=== PATIENT | male | born 1970 | race Caucasian/White ===

== ENCOUNTER 2017-02-03 19:38 | Emergency (ER) | payer SELFPAY ==
[~2017-02-03] VITALS: Ht 177.8 cm; Wt 77.7 kg
[~2017-02-03 19:38] MED LIST: CIPR-9 PO; HYDR-3533 PO; METR-1 PO; NEXI20CA PO; PROM25TA5 PO
[2017-02-03 19:42] VITALS: BP 100/66; PULSE 83; RESP 16; TEMP 98.3; O2SAT 98
--- NOTE | 2017-02-03 20:05 | PD ---
HPI Chief Complaint: Abdominal Pain Time Seen by Provider: 20:01 Travel History International Travel<30 days: No Contact w/Intl Traveler<30days: No Traveled to known affect area: No History of Present Illness HPI 46-year-old male with history of diverticulitis, status post appendectomy, perforated gastric ulcer surgical treatment previously, presents to the ER today because he's had 3 days history of left testicular pain with radiation up to the left groin area. He states this started on its own. He denies any burning with urination, fevers, vomiting, back pains, or any other symptoms. Pain is currently rated a 10 out of 10. Modifying Factors: None Associated Signs & Symptoms: Left testicular pain Risk Factors: None PFSH Past Medical History Diminished Hearing: No GERD: Yes Musculoskeletal: Yes (RIGHT KNEE FX AGE 35) Past Surgical History Appendectomy: Yes (AGE 14) Other Surgery: Yes (TENDON,ARTERY REPAIR RIGHT FOREARM 1992) Social History Alcohol Use: No Tobacco Use: Yes (E-CIG) Substance Use: No Allergies-Medications (Allergen,Severity, Reaction): Coded Allergies: No Known Allergies (Verified , 02/03/17) Reported Meds & Prescriptions Reported Meds & Active Scripts Active Motrin Ib (Ibuprofen) 200 Mg Tab 600 Mg PO Q6H PRN Doxycycline Hyclate 100 Mg Cap 100 Mg PO BID Reported Nexium (Esomeprazole DR) 20 Mg Capdr 20 Mg PO DAILY Review of Systems Except as stated in HPI: all other systems reviewed are Neg Physical Exam Narrative GENERAL: Well-developed middle age male patient currently in mild distress but awake and oriented 3. SKIN: Focused skin assessment warm/dry. HEAD: Atraumatic. Normocephalic. EYES: Pupils equal and round. No scleral icterus. No injection or drainage. ENT: No nasal bleeding or discharge. Mucous membranes pink and moist. NECK: Trachea midline. No JVD. CARDIOVASCULAR: Regular rate and rhythm. No murmur appreciated. RESPIRATORY: No accessory muscle use. Clear to auscultation. Breath sounds equal bilaterally. GASTROINTESTINAL: Abdomen soft, mild lower pelvic tenderness on palpation especially left groin area, nondistended. Hepatic and splenic margins not palpable. GENITOURINARY: Circumcised. Testes descended bilaterally without evidence of rotation. There is tenderness to palpation and elevation of the left testicle. No lesions or erythema. No urethral discharge. MUSCULOSKELETAL: No obvious deformities. No clubbing. No cyanosis. No edema. NEUROLOGICAL: Awake and alert. No obvious cranial nerve deficits. Motor grossly within normal limits. Normal speech. PSYCHIATRIC: Appropriate mood and affect; insight and judgment normal. Data Data Last Documented VS Vital Signs Date Time Temp Pulse Resp B/P Pulse Ox O2 Delivery O2 Flow Rate FiO2 02/03/17 20:26 20 02/03/17 20:23 117/71 02/03/17 19:42 98.3 83 98 Orders Urinalysis - C+S If Indicated (02/03/17 20:01) Gc And Chlamydia Pcr (02/03/17 20:01) Us Testicles W Doppler (02/03/17 20:01) Acetamin-Hydrocod 325-5 Mg ([place] 5-325 (02/03/17 20:15) Labs Laboratory Tests Test 02/03/17 20:20 Urine Color YELLOW Urine Turbidity CLEAR Urine pH 5.5 Urine Specific [place] 1.014 Urine Protein NEG mg/dL Urine Glucose (UA) NEG mg/dL Urine Ketones NEG mg/dL Urine Occult Blood TRACE Urine Nitrite NEG Urine Bilirubin NEG Urine Leukocyte Esterase NEG Urine RBC 0-3 /hpf Urine WBC 0-2 /hpf Urine Squamous Epithelial 0-5 /hpf Cells Urine Mucus FEW /lpf Microscopic Urinalysis Comment CULT NOT INDICATED MDM Medical Decision Making Medical Screen Exam Complete: Yes Emergency Medical Condition: Yes Medical Record Reviewed: Yes Interpretation(s) Laboratory Tests Test 02/03/17 20:20 Urine Occult Blood TRACE (NEG) Urine Mucus FEW /lpf (OCC) Differential Diagnosis Left testicular painepididymitis versus orchitis versus UTI versus testicle torsion Narrative Course UA shows no signs of UTI. Ultrasound did not show any signs of testicular torsion. At this point, it appears that he may have an underlying orchitis or epididymitis. GC has been sent. My plan would be to treat him with antibiotics and have her follow-up with primary care physician as needed. Return for any worsening in pain or new symptoms. The plan has been discussed with him and he states understanding. In addition, there is a large left varicocele also identified although it is uncertain whether this could be the cause of pain. Diagnosis Primary Impression: Testicular pain, left Med/Other Pt SpecificInfo: Prescription(s) given Scripts Ibuprofen (Motrin Ib)200 Mg [id number] Mg PO Q6H PRN (PAIN SCALE 1 TO 10) #21 TAB Ref 0 Prov:Maci Davis MD 02/03/17 Doxycycline Hyclate 100 Mg [id number] Mg PO BID #20 CAP Ref 0 Prov:Maci Davis MD 02/03/17 Disposition: 01 DISCHARGE HOME Condition: Stable Maci Davis MD February 03, 2017 20:05
[2017-02-03] MEDS ORDERED: ACETAMINOPHEN/HYDROcodone 325 MG/5 MG TAB PO ONE (20:15)
[2017-02-03 20:23] VITALS: BP 117/71
[2017-02-03 20:24] LABS: BLOOD, URINE TRACE (NEG); GLUCOSE,URINE NEG (NEG); KETONE, URINE NEG (NEG); NITRITE,URINE NEG (NEG); PH, URINE 5.5 (5.0-8.5)
[2017-02-03 20:31] LABS: URINE COLOR YELLOW (YELLW/STRAW)
[2017-02-03 20:32] LABS: MUCUS URINE FEW /lpf (OCC); RBC, URINE 0-3 /hpf (0-3); SQUAMOUS EPITHELIAL CELL URINE 0-5 /hpf (0-5); WBC, URINE 0-2 /hpf (0-5)
[2017-02-03 20:33] LABS: COMMENT (UR) CULT NOT INDICATED; CULTURE IF INDICATED CULT NOT INDICATED
--- NOTE | 2017-02-03 20:51 | RADHPO ---
EXAM DATE/TIME: 02/03/2017 20:16 [facility] COMPARISON: No previous studies available for comparison. INDICATIONS : Testicle pain. MEDICAL HISTORY : Gastroesophageal reflux disease. Ulcers. Diverticulitis. SURGICAL HISTORY : Appendectomy. ENCOUNTER: Initial ACUITY: 3 days PAIN SCORE: 4/10 LOCATION: Bilateral testicles. MEASUREMENTS: RIGHT TESTICLE: 3.6 x 2.5 x 4.2cm LEFT TESTICLE: 3.3 x 2.3 x 4.3cm FINDINGS: RIGHT TESTICLE: Homogeneous echotexture without intra or extratesticular mass. Blood flow is symmetric and within no rmal limits. No hydrocele or varicocele. Subcentimeter epididymal cyst. LEFT TESTICLE: Homogeneous echotexture without intra or extratesticular mass. Blood flow is symmetric and within no rmal limits. Subcentimeter epididymal cyst. No hydrocele. Large varicocele. SCROTUM: Within normal limits. CONCLUSION: 1. Large left varicocele. 2. Otherwise within normal limits. No torsion. Subcentimeter bilateral spermatoceles are incidentally noted. Alexis Shell MD on February 03, 2017 at 20:48 Board Certified Radiologist. This report was verified electronically.
[2017-02-03] MEDS ORDERED: MOTR200T4 PO (21:00)
[2017-02-03] MEDS ORDERED: LIDOCAINE HCL 1% 50 ML VIAL XX ONE (21:00)
[2017-02-03] MEDS ORDERED: SODIUM CHLORIDE 0.9% FLUSH 10 ML FLUSH IVF PRN (21:00)
[2017-02-03] MEDS ORDERED: cefTRIAXone 250 MG VIAL IM ONE (21:00)
[2017-02-03] MEDS ORDERED: DOXY100C PO (21:00)
[2017-02-03 22:12] VITALS: BP 99/73
[2017-02-04 12:21] LABS: CHLAMYDIA PCR NOT DETECTED (NOT DETECT); NEISSERIA PCR NOT DETECTED (NOT DETECT)
== END 2017-02-03 22:20 | disposition home or self-care (01) ==
LOC: PHED 19:38
DX: N50.812 Left testicular pain (principal); I86.1 Scrotal varices; K21.9 Gastro-esophageal reflux disease without esophagitis
CPT/HCPCS: 76870; 81001; 87491; 87591; 93975; 96372; 99284; J0696

== ENCOUNTER 2017-07-10 09:12 | Inpatient (IN) | payer SELFPAY ==
[2017-07-10] VITALS (15 sets, daily range): BP systolic 82–118; BP diastolic 56–77; PULSE 58–156; RESP 16–38; TEMP 98.1–98.2; O2SAT 95–98
[~2017-07-10] VITALS: Ht 188 cm; Wt 83.9 kg
[~2017-07-10 09:12] MED LIST changes: -CIPR-9 PO; +DOXY100C PO; -HYDR-3533 PO; -METR-1 PO; +MOTR200T4 PO; -PROM25TA5 PO
[2017-07-10] MEDS ORDERED: DILTIAZEM HCL 25 MG/5 ML VIAL IV PUSH ONE (09:30)
[2017-07-10] MEDS ORDERED: PRIL20TA2 (09:35)
[2017-07-10 09:37] LABS: AUTOMATED NEUTROPHIL # 8.9 TH/MM3 (1.8-7.7); BASOPHIL # 0.1 TH/MM3 (0-0.2); BASOPHIL % 1.2 % (0.0-2.0); EOSINOPHIL # 0.2 TH/MM3 (0-0.4); EOSINOPHIL % 1.8 % (0.0-4.0); HEMATOCRIT 45.6 % (39.0-51.0); LYMPH % 18.8 % (9.0-44.0); LYMPHOCYTE # 2.3 TH/MM3 (1.0-4.8); MEAN CELL VOLUME 94.1 FL (80.0-100.0); MEAN CORPUSCULAR HEMOGLOBIN 31.9 PG (27.0-34.0); MEAN CORPUSCULAR HGB CONC 33.9 % (32.0-36.0); MONO % 6.6 % (0.0-8.0); NEUT % 71.6 % (16.0-70.0); PLATELET COUNT 300 TH/MM3 (150-450); RED BLOOD COUNT 4.84 MIL/MM3 (4.50-5.90); RED CELL DISTRIBUTION WIDTH 12.3 % (11.6-17.2); WHITE BLOOD COUNT 12.3 TH/MM3 (4.0-11.0)
--- NOTE | 2017-07-10 09:44 | RADRPT ---
EXAM DATE/TIME: 07/10/2017 09:30 [facility] COMPARISON: No previous studies available for comparison. INDICATIONS : Heart palpatations & syncopal episode. MEDICAL HISTORY : Gastroesophageal reflux disease. Diverticulitis. Perforated ulcer. Right knee fracture. Smoker. SURGICAL HISTORY : Appendectomy. Right forearm tendon repair. ENCOUNTER: Initial ACUITY: 1 day PAIN SCORE: 0/10 LOCATION: chest FINDINGS: A single view of the chest demonstrates the lungs to be symmetrically aerated without evidence of mas s, infiltrate or effusion. The cardiomediastinal contours are unremarkable. Osseous structures are intact. CONCLUSION: 1. No acute cardiopulmonary disease. Biju Singh MD on July 10, 2017 at 9:37 Board Certified Radiologist. This report was verified electronically.
[2017-07-10] MEDS: SODIUM CHLOR 0.9% 1000 ML INJ 1,000 ML IV SCH ×3 (09:45→22:12)
[2017-07-10 09:48] LABS: APTT (PATIENT) 25.7 SEC (24.3-30.1); PROTHROMBIN TIME - PATIENT 10.6 SEC (9.8-11.6)
[2017-07-10 10:03] LABS: BICARBONATE 21.7 MEQ/L (21.0-32.0)
[2017-07-10 10:04] LABS: ANION GAP 8 MEQ/L (5-15); AST (GOT) 37 U/L (15-37); CHLORIDE 111 MEQ/L (98-107); GLOMERULAR FILTRATION RATE 65 ML/MIN (>89); POTASSIUM 3.9 MEQ/L (3.5-5.1); SODIUM (NA) 141 MEQ/L (136-145)
[2017-07-10 10:06] LABS: ALT (GPT) 41 U/L (12-78); TOTAL BILIRUBIN ADULT 0.4 MG/DL (0.2-1.0)
[2017-07-10 10:07] LABS: ALKALINE PHOSPHATASE 81 U/L (45-117); CREATINE KINASE 232 U/L (39-308)
[2017-07-10 10:10] LABS: HEMO FLAGS DIFF FINAL
[2017-07-10 10:11] LABS: BLOOD UREA NITROGEN 15 MG/DL (7-18)
[2017-07-10] MEDS ORDERED: SODIUM CHLOR 0.9% 1000 ML INJ 1,000 ML IV ONE ×2 (10:15→10:30)
[2017-07-10] MEDS ORDERED: DILTIAZEM INJ 125 MG in SODIUM CHLORIDE 0.9% INJ 100 ML IV PRN (10:15)
--- NOTE | 2017-07-10 10:28 | PD ---
HPI Chief Complaint: Cardiac Complaint Time Seen by Provider: 09:22 Travel History International Travel<30 days: No Contact w/Intl Traveler<30days: No Traveled to known affect area: No History of Present Illness HPI 46-year-old male complains of near syncope and tachycardia and palpitation. Patient states that he started drinking tachycardia and palpitations since last night around 9 PM. Patient states that he went to work this morning and had the near-syncopal episode at work. Patient denies any headache. Patient states that he has left-sided chest pressure. Patient denies any chest pain radiation. Patient denies any nausea diaphoresis. Patient denies any coughing congestion fever chills. Patient denies history hypertension, diabetes, hyperlipidemia. Patient is a smoker. Patient denies any excessive caffeine intake. Patient denies any history of thyroid disease. Patient denies any history of palpitation or tachycardia in the past. Patient take Prilosec occasionally for heartburn. PFSH Past Medical History Diminished Hearing: No Gastrointestinal Disorders: Yes (DIVERTICULITIS AND PERFORATED ULCER) GERD: Yes Musculoskeletal: Yes (RIGHT KNEE FX AGE 35) Past Surgical History Appendectomy: Yes (AGE 14) Other Surgery: Yes (TENDON,ARTERY REPAIR RIGHT FOREARM 1992) Social History Alcohol Use: No Tobacco Use: Yes (09/17 PPD) Substance Use: No Allergies-Medications (Allergen,Severity, Reaction): Coded Allergies: No Known Allergies (Verified , 02/03/17) Reported Meds & Prescriptions Reported Meds & Active Scripts Active Reported Prilosec (Omeprazole Magnesium) 20 Mg Tab Review of Systems General / Constitutional: No: Fever Eyes: No: Visual changes HENT: No: Headaches Cardiovascular: Positive: Palpitations, Tachycardia, No: Chest Pain or Discomfort Respiratory: No: Shortness of Breath Gastrointestinal: No: Abdominal Pain Genitourinary: No: Dysuria Musculoskeletal: No: Pain Skin: No Rash Neurologic: No: Weakness Psychiatric: No: Depression Endocrine: No: Polydipsia Hematologic/Lymphatic: No: Easy Bruising Physical Exam Narrative GENERAL: Well-nourished, well-developed patient. SKIN: Focused skin assessment warm/dry. HEAD: Normocephalic. EYES: No scleral icterus. No injection or drainage. NECK: Supple, trachea midline. No JVD or lymphadenopathy. CARDIOVASCULAR: Tachycardia rate and rhythm without murmurs, gallops, or rubs. RESPIRATORY: Breath sounds equal bilaterally. No accessory muscle use. GASTROINTESTINAL: Abdomen soft, non-tender, nondistended. MUSCULOSKELETAL: No cyanosis, or edema. BACK: Nontender without obvious deformity. No CVA tenderness. Neurologic exam normal. Data Data Last Documented VS Vital Signs Date Time Temp Pulse Resp B/P (MAP) Pulse Ox O2 Delivery O2 Flow Rate FiO2 07/10/17 10:25 98.1 156 18 82/58 (66) 96 Room Air Orders Orders Electrocardiogram (07/10/17 09:22) Complete Blood Count With Diff (07/10/17 09:22) Comprehensive Metabolic Panel (07/10/17 09:22) Creatine Kinase (Cpk) (07/10/17 09:22) Troponin I (07/10/17 09:22) Prothrombin Time / Inr (Pt) (07/10/17 09:22) Act Partial Throm Time (Ptt) (07/10/17 09:22) Thyroid Stimulating Hormone (07/10/17 09:22) Chest, Single Ap (07/10/17 09:22) Iv Access Insert/Monitor (07/10/17 09:22) Ecg Monitoring (07/10/17 09:22) Oximetry (07/10/17 09:22) Diltiazem Inj (Cardizem Inj) (07/10/17 09:30) Sodium Chlor 0.9% 1000 Ml Inj (Ns 1000 M (07/10/17 09:45) Vital Signs (Adult) Q15MX4,Q4H (07/10/17 10:08) Body Mechanic / Telemetry SALLIE.Q8H (07/10/17 10:08) Cardiac Rhythm SALLIE.Q8H (07/10/17 10:08) Notify Dr: Other (07/10/17 10:08) Diltiazem Inj (Cardizem Inj) (07/10/17 10:15) Sodium Chlor 0.9% 1000 Ml Inj (Ns 1000 M (07/10/17 10:15) Sodium Chlor 0.9% 1000 Ml Inj (Ns 1000 M (07/10/17 10:30) Digoxin Inj (Lanoxin Inj) (07/10/17 10:30) Admit Order (Ed Use Only) (07/10/17 10:29) Labs Laboratory Tests Test 07/10/17 09:28 White Blood Count 12.3 TH/MM3 Red Blood Count 4.84 MIL/MM3 Hemoglobin 15.4 GM/DL Hematocrit 45.6 % Mean Corpuscular Volume 94.1 FL Mean Corpuscular Hemoglobin 31.9 PG Mean Corpuscular Hemoglobin Concent 33.9 % Red Cell Distribution Width 12.3 % Platelet Count 300 TH/MM3 Mean Platelet Volume 8.4 FL Neutrophils (%) (Auto) 71.6 % Lymphocytes (%) (Auto) 18.8 % Monocytes (%) (Auto) 6.6 % Eosinophils (%) (Auto) 1.8 % Basophils (%) (Auto) 1.2 % Neutrophils # (Auto) 8.9 TH/MM3 Lymphocytes # (Auto) 2.3 TH/MM3 Monocytes # (Auto) 0.8 TH/MM3 Eosinophils # (Auto) 0.2 TH/MM3 Basophils # (Auto) 0.1 TH/MM3 CBC Comment DIFF FINAL Differential Comment Prothrombin Time 10.6 SEC Prothromb Time International Ratio 1.0 RATIO Activated Partial Thromboplast Time 25.7 SEC Blood Urea Nitrogen 15 MG/DL Creatinine 1.20 MG/DL Random Glucose 130 MG/DL Total Protein 6.8 GM/DL Albumin 3.5 GM/DL Calcium Level 8.4 MG/DL Alkaline Phosphatase 81 U/L Aspartate Amino Transf (AST/SGOT) 37 U/L Alanine Aminotransferase (ALT/SGPT) 41 U/L Total Bilirubin 0.4 MG/DL Sodium Level 141 MEQ/L Potassium Level 3.9 MEQ/L Chloride Level 111 MEQ/L Carbon Dioxide Level 21.7 MEQ/L Anion Gap 8 MEQ/L Estimat Glomerular Filtration Rate 65 ML/MIN Total Creatine Kinase 232 U/L Troponin I 0.48 NG/ML Thyroid Stimulating Hormone 3rd Gen 1.590 uIU/ML MDM Medical Decision Making Medical Screen Exam Complete: Yes Emergency Medical Condition: Yes Interpretation(s) Last Impressions Chest X-Ray 07/10/17921 Signed Impressions: Service Date/Time: Monday, July 10, 2017 09:30 - CONCLUSION: 1. No acute cardiopulmonary disease. Biju Singh MD CBC WBC 12.3. 71 neutrophil. Troponin 0.48 Differential Diagnosis Differential diagnosis including atrial flutter with RVR, tachycardia. Narrative Course 38-year-old male with tachycardia, palpitation, near-syncope, left sided chest pain. The symptoms started around 9:00 last night. Normal saline solution 2 L IV bolus. Normal saline solution 1 25 cc an hour. Carotid massage unsuccessful to slow the heart rate. Cardizem 20 mg IV given. Patient had persistent tachycardia with rate 150 range. Cardizem drip started. Digoxin 0.25 mg IV given. Patient will be transferred to the main hospital admitted to [facility] with cardiology consults Dr. Siegel. I spoke with . Troponin is elevated. Unknown etiology could be related to cardiac arrhythmia. We will do serial troponin levels. Diagnosis Primary Impression: Atrial flutter with rapid ventricular response Additional Impressions: Chest pain Qualified Codes: R07.9 - Chest pain, unspecified Elevated troponin Admitting Information Admitting Physician Requests: Admit Saud Grover MD Jul 10, 2017 10:28
[2017-07-10] MEDS ORDERED: DIGOXIN 0.5 MG/2 ML VIAL IV PUSH ONE (10:30)
--- NOTE | 2017-07-10 11:20 | HHI.HP ---
[facility] Heladio Bob MD Admission Diagnosis atrial flutter with RVR. Chest pain. Diagnoses: Chief Complaint: lightheadedness, palpitations Travel History International Travel<30 Days: No Contact w/Intl Traveler <30 Da: No Traveled to Known Affected Are: No History of Present Illness 46-year-old white male being admitted for suspected symptomatic tachyarrhythmia (SVT vs Afib) and elevated troponin. Patient was in his usual state of health until last night when he began experiencing palpitations. He did not have any chest pain but his palpitations lingered throughout the entire and still persist until this moment. While he was at work she began experiencing lightheadedness with nausea associated with shortness of breath; and says he almost passed out. Denies any substantial chest pain today but reports having some vague intermittent chest pains about 2 days ago that self resolved. Denies taking any new medications for his acute symptoms and decided to proceed to the emergency room. Tachyarrhythmia did not respond to carotid massage and Cardizem bolus Review of Systems Except as stated in HPI: all other systems reviewed are Neg Past Family Social History Past Medical History GERD, peptic ulcer dx Past Surgical History perforated ulcer repair Allergies: Coded Allergies: No Known Allergies (Verified , 02/03/17) Family History CAD Social History Smoking pack per day since 13 years of age Physical Exam Vital Signs Vital Signs Date Time Temp Pulse Resp B/P (MAP) Pulse Ox O2 Delivery O2 Flow Rate FiO2 07/10/17 10:43 153 16 101/63 (76) 97 Room Air 07/10/17 10:39 156 98/57 07/10/17 10:25 98.1 156 18 82/58 (66) 96 Room Air 07/10/17 10:22 156 18 82/58 (66) 96 Room Air 07/10/17 09:32 98 Room Air 07/10/17 09:26 98.2 155 18 118/77 (91) 98 Physical Exam VS: Tachycardic, afebrile GENERAL: No acute distress, awake alert SKIN: Warm and dry. EYES: . No scleral icterus. No injection or drainage. ENT: No nasal bleeding or discharge. Mucous membranes pink and moist. CARDIOVASCULAR: Tachycardic with regular rhythm, no murmurs RESPIRATORY: No accessory muscle use. Clear to auscultation. Breath sounds equal bilaterally. GASTROINTESTINAL: Abdomen soft, non-tender, nondistended. Hepatic and splenic margins not palpable. Extremities: No clubbing, cyanosis, or edema. No obvious deformities. MUSCULOSKELETAL: Extremities without clubbing, cyanosis, or edema. No obvious deformities. grossly intact ROM with 5/5 strength in upper ext's proximally with a negative [place] test on the left, very mild tenderness noted in the biceps head groove. NEUROLOGICAL: Awake and alert. No obvious cranial nerve deficits. No facial droop nor slurred speech noted. PSYCHIATRIC: Appropriate mood and affect; insight and judgment normal. Laboratory Laboratory Tests Test 07/10/17 09:28 White Blood Count 12.3 Red Blood Count 4.84 Hemoglobin 15.4 Hematocrit 45.6 Mean Corpuscular Volume 94.1 Mean Corpuscular Hemoglobin 31.9 Mean Corpuscular Hemoglobin Concent 33.9 Red Cell Distribution Width 12.3 Platelet Count 300 Mean Platelet Volume 8.4 Neutrophils (%) (Auto) 71.6 Lymphocytes (%) (Auto) 18.8 Monocytes (%) (Auto) 6.6 Eosinophils (%) (Auto) 1.8 Basophils (%) (Auto) 1.2 Neutrophils # (Auto) 8.9 Lymphocytes # (Auto) 2.3 Monocytes # (Auto) 0.8 Eosinophils # (Auto) 0.2 Basophils # (Auto) 0.1 CBC Comment DIFF FINAL Differential Comment Prothrombin Time 10.6 Prothromb Time International Ratio 1.0 Activated Partial Thromboplast Time 25.7 Blood Urea Nitrogen 15 Creatinine 1.20 Random Glucose 130 Total Protein 6.8 Albumin 3.5 Calcium Level 8.4 Alkaline Phosphatase 81 Aspartate Amino Transf (AST/SGOT) 37 Alanine Aminotransferase (ALT/SGPT) 41 Total Bilirubin 0.4 Sodium Level 141 Potassium Level 3.9 Chloride Level 111 Carbon Dioxide Level 21.7 Anion Gap 8 Estimat Glomerular Filtration Rate 65 Total Creatine Kinase 232 Troponin I 0.48 Thyroid Stimulating Hormone 3rd Gen 1.590 Result Diagram: 07/10/1792707/10/17927 Imaging Last Impressions Chest X-Ray 07/10/17 0922 Signed Impressions: Service Date/Time: Monday, July 10, 2017 09:30 - CONCLUSION: 1. No acute cardiopulmonary disease. MD Rossana Marie VTE Risk Assessment Rossana VTE Risk Assessment: No/Low Risk (score <= 1) Rossana Risk Assessment Model Point Value = 1 Point Value = 2 Point Value = 3 Point Value = 5 Age 41-60 Minor surgery BMI > 25 kg/m2 Swollen legs Varicose veins or History of unexplained or recurrent spontaneous Oral contraceptives or hormone replacement Sepsis (< 1 month) Serious lung disease, including pneumonia (< 1 month) Abnormal pulmonary function Acute myocardial infarction Congestive heart failure (< 1 month) History of inflammatory bowel disease Medical patient at bed rest Age 61-74 Arthroscopic surgery Major open surgery (> 45 min) Laparoscopic surgery (> 45 min) Malignancy Confined to bed (> 72 hours) Immobilizing plaster cast Central venous access Age >= 75 History of VTE Family history of VTE Factor V Leiden Prothrombin [id number] Lupus anticoagulant Anticardiolipin antibodies Elevated serum homocysteine Heparin-induced thrombocytopenia Other congenital or acquired thrombophilia Stroke (< 1 month) Elective arthroplasty Hip, pelvis, or leg fracture Acute spinal cord injury (< 1 month) Prophylaxis Regimen Total Risk Factor Score Risk Level Prophylaxis Regimen 0-1 Low Early ambulation 2 Moderate Order ONE of the following: *Sequential Compression Device (SCD) *Heparin 5000 units SQ BID 3-4 Higher Order ONE of the following medications: *Heparin 5000 units SQ TID *Enoxaparin/Lovenox 40 mg SQ daily (WT < 150 kg, CrCl > 30 mL/min) *Enoxaparin/Lovenox 30 mg SQ daily (WT < 150 kg, CrCl > 10-29 mL/min) *Enoxaparin/Lovenox 30 mg SQ BID (WT < 150 kg, CrCl > 30 mL/min) AND/OR *Sequential Compression Device (SCD) 5 or more Highest Order ONE of the following medications: *Heparin 5000 units SQ TID (Preferred with Epidurals) *Enoxaparin/Lovenox 40 mg SQ daily (WT < 150 kg, CrCl > 30 mL/min) *Enoxaparin/Lovenox 30 mg SQ daily (WT < 150 kg, CrCl > 10-29 mL/min) *Enoxaparin/Lovenox 30 mg SQ BID (WT < 150 kg, CrCl > 30 mL/min) AND *Sequential Compression Device (SCD) Assessment and Plan Assessment and Plan 46-year-old white male being admitted for tachyarrhythmia, suspected SVT versus A. fib Symptomatic tachyarrhythmia - No EKG on chart, spoke to electromechanical technologist will obtain one stat prior to patient being transferred to Main Hospital - Discussed case with ER attending who discussed case with cardiology, agree with plan for Cardizem drip and a one-time digoxin push, anticipate transesophageal echocardiogram with possible conversion if her dysrhythmia still present - telemetry; I independent reviewed the chest x-ray which shows no acute findings Elevated troponin - Secondary to tachyarrhythmia versus possible ischemic demand, will let cardiology dictating us whether or not ischemic workup is warranted once tachyarrhythmia is stabilized - Trend troponins, stat EKG is pending as above Currently nothing by mouth for possible procedure this later this afternoon as above Physician Certification 2 Midnight Certification Type: Admission for Inpatient Services Order for Inpatient Services The services are ordered in accordance with Medicare regulations or non- Medicare payer requirements, as applicable. In the case of services not specified as inpatient-only, they are appropriately provided as inpatient services in accordance with the 2-midnight benchmark. Estimated LOS (days): 2 2 days is the estimated time the patient will need to remain in the hospital, assuming treatment plan goals are met and no additional complications. Post-Hospital Plan: Home Herrera Blue MD Jul 10, 2017 11:20
[2017-07-10] MEDS ORDERED: SODIUM CHLORIDE 0.9% FLUSH 10 ML FLUSH IV FLUSH PRN (11:30)
[2017-07-10] MEDS ORDERED: LIDOCAINE HCL 1% PF 5 ML AMPULE OTHER ONE (12:00)
[2017-07-10] MEDS ORDERED: PROPOFOL 200 MG/20 ML AMP IV ONE (12:00)
[2017-07-10] MEDS ORDERED: CHLORHEXIDINE GLUCONATE 2 % 1 PACK (2 CLOTHS)(extra cloths) TOPICAL PRN (14:00)
[2017-07-10] MEDS ORDERED: ACETAMINOPHEN 500 MG CPLT PO PRN (15:45)
[2017-07-10] MEDS: NICOTINE 7 MG/24 HR PATCH T-DERMAL SCH (18:33)
[2017-07-10] MEDS ORDERED: WARFARIN SOD 4 MG TAB PO ONE (20:00)
[2017-07-10] MEDS: METOPROLOL TARTRATE 25 MG TAB PO SCH (21:00)
--- NOTE | 2017-07-10 22:00 | MB ---
cc: ALLEN SIEGEL DATE OF CONSULTATION 07/10/2017 HISTORY OF THE PRESENT ILLNESS Mr. Bond is a 46-year-old white male with a three day history of palpitations. 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 He has had vague chest discomfort which was self-limiting. He was diagnosed with atrial fibrillation with rapid ventricular response. PAST MEDICAL HISTORY Positive for: 1. Gastroesophageal reflux disease. 2. Peptic ulcer disease. 3. Perforated ulcer repair. No history of hypertension, diabetes mellitus, coronary artery disease or cerebrovascular accident. MEDICATIONS None ALLERGIES None. SOCIAL HISTORY The patient smokes a pack a day. He drinks alcohol rarely. FAMILY HISTORY Positive for coronary artery disease. REVIEW OF SYSTEMS Otherwise negative. PHYSICAL EXAMINATION VITAL SIGNS: Blood pressure 95/60, pulse 150 and irregular. HEENT: Negative. 2+ carotid upstrokes. No bruits. LUNGS: Clear. HEART: Irregular with no murmurs, gallops or rubs. ABDOMEN: Soft. No bruits. EXTREMITIES: Without edema. 2+ distal pulses. NEUROLOGIC: Examination is grossly nonfocal. EKG was reviewed and showed atrial flutter with rapid ventricular response. No acute changes. LABORATORY DATA Hemoglobin 15.4. Potassium 3.9, creatinine 1.2, AST 37, ALT 41. CK 232. Troponin 0.48. TSH 1.59. DIAGNOSES 1. Atrial flutter with rapid ventricular response. 2. Smoking. DISPOSITION Mr. Bond will undergo transesophageal echocardiogram and DC cardioversion. He will be restarted on low dose beta-syd after the cardioversion. We will also start him on warfarin which will be continued for 3 months. If he stays in sinus rhythm the warfarin can be discontinued and he can be switched to aspirin since his [id number] score is zero. He will follow up with Dr. Bob, his primary physician, in his office after discharge. Allen Siegel MD OQ/KK /5:46 PM /9:45 PM
[2017-07-10] MEDS: SODIUM CHLORIDE 0.9% FLUSH 10 ML FLUSH IV FLUSH SCH (22:11)
[2017-07-11] VITALS: BP 91/64; PULSE 70; RESP 16; TEMP 98.3; O2SAT 95
[2017-07-11 02:00] VITALS: PULSE 75
[2017-07-11 04:00] VITALS: BP 107/67; PULSE 64; PULSE 71; RESP 16; TEMP 98.4
[2017-07-11] MEDS ORDERED: CHLORHEXIDINE GLUCONATE 2 % 1 PACK (2 CLOTHS)(taper/protocol) TOPICAL SCH (04:00)
[2017-07-11 06:00] VITALS: PULSE 74
[2017-07-11] MEDS: SODIUM CHLOR 0.9% 1000 ML INJ 1,000 ML IV SCH (06:00)
[2017-07-11 08:00] VITALS: PULSE 75
--- NOTE | 2017-07-11 08:12 | ECHRPT ---
Indication: CONCLUSIONS Normal left ventricular size. Wall thickness is normal. The left ventricular systolic function is normal with an estimated ejection fraction of 55%. The left atrial size is moderately dilated. The right atrial size is moderately dilated. Moderate aortic dilatation at the level of the sinuses of Valsalva. Mild mitral valve regurgitation. Mild aortic valve regurgitation. BP: / HR: Rhythm: Sinus MEASUREMENTS (Male / Female) Normal Values Technical Quality:Fair 2D ECHO LV Diastolic Diameter PLAX 4.2 cm 4.2 - 5.9 / 3.9 - 5.3 cm LV Systolic Diameter PLAX 3.1 cm IVS Diastolic Thickness 0.8 cm 0.6 - 1.0 / 0.6 - 0.9 cm LVPW Diastolic Thickness 0.8 cm 0.6 - 1.0 / 0.6 - 0.9 cm LV Relative Wall Thickness 0.4 LVOT Diameter 2.1 cm Aortic Root Diameter 5.1 cm LA Systolic Diameter LX 3.0 cm 3.0 - 4.0 / 2.7 - 3.8 cm M-MODE AV Cusp Separation MM 1.8 cm DOPPLER AV Peak Velocity 102.0 cm/s AV Peak Gradient 4.2 mmHg AV Mean Gradient 2.0 mmHg AV Velocity Time Integral 21.1 cm AI Peak Velocity 345.0 cm/s AI Peak Gradient 47.6 mmHg AI Pressure Half Time 724.0 ms LVOT Peak Velocity 67.7 cm/s LVOT Peak Gradient 1.8 mmHg LVOT Velocity Time Integral 13.8 cm AV Area Cont Eq vti 2.3 cm AV Area Cont Eq pk 2.3 cm Mitral E Point Velocity 72.1 cm/s Mitral A Point Velocity 34.1 cm/s Mitral E to A Ratio 2.1 LV E' Lateral Velocity 10.7 cm/s Mitral E to LV E' Lateral Ratio 6.7 LV E' Septal Velocity 8.3 cm/s Mitral E to LV E' Septal Ratio 8.7 PV Peak Velocity 48.9 cm/s PV Peak Gradient 1.0 mmHg FINDINGS LEFT VENTRICLE Normal left ventricular size. Wall thickness is normal. The left ventricular systolic function is normal with an estimated ejection fraction of 55%. LEFT ATRIUM The left atrial size is moderately dilated. RIGHT ATRIUM The right atrial size is moderately dilated. AORTA Moderate aortic dilatation at the level of the sinuses of Valsalva. MITRAL VALVE Mild mitral valve regurgitation. AORTIC VALVE Mild aortic valve regurgitation. Allen Siegel MD, FACC (Electronically Signed) Final Date:11 July 2017 08:11
--- NOTE | 2017-07-11 08:46 | HHI.PR ---
Subjective Remarks Follow up tachyarrhythmia. Patient denies chest pain, dyspnea, palpitations. He wants to go home. States that he has an appointment with cardiology tomorrow in [place]. Objective Vitals Vital Signs Date Time Temp Pulse Resp B/P (MAP) Pulse Ox O2 Delivery O2 Flow Rate FiO2 07/11/17 06:00 74 07/11/17 04:00 98.4 64 16 107/67 (80) 07/11/17 04:00 71 07/11/17 02:00 75 07/11/17 00:00 70 07/11/17 00:00 98.3 70 16 91/64 (73) 95 07/10/17 22:00 70 07/10/17 20:00 98.2 75 38 95 07/10/17 20:00 75 07/10/17 18:00 78 07/10/17 16:00 65 07/10/17 14:38 58 07/10/17 12:30 152 07/10/17 11:30 150 16 93/56 (68) 97 Room Air 07/10/17 11:30 07/10/17 11:15 150 16 95/73 (80) 97 Room Air 07/10/17 10:43 153 16 101/63 (76) 97 Room Air 07/10/17 10:39 156 98/57 07/10/17 10:25 98.1 156 18 82/58 (66) 96 Room Air 07/10/17 10:22 156 18 82/58 (66) 96 Room Air 07/10/17 10:00 153 16 85/66 (72) 97 Room Air 07/10/17 09:40 156 16 96/65 (75) 97 Room Air 07/10/17 09:32 98 Room Air 07/10/17 09:26 98.2 155 18 118/77 (91) 98 I/O 07/10/17 07/10/17 07/10/17 07/11/17 07/11/17 07/11/17 07:00 15:00 23:00 07:00 15:00 23:00 Intake Total 2045.00 ml 1013 ml Output Total 700 ml Balance 2045.00 ml 313 ml Intake Oral 60 ml IV Total 2045.00 ml 953 ml Output Urine Total 700 ml Result Diagram: 07/10/1792707/10/17927 Imaging Last Impressions Chest X-Ray 07/10/1722 Signed Impressions: Service Date/Time: Monday, July 10, 2017 09:30 - CONCLUSION: 1. No acute cardiopulmonary disease. Biju Singh MD Objective Remarks General: No acute distress. Heart: Regular rate and rhythm. No murmur. Lungs: Clear to auscultation bilaterally. No wheezes, rales, or rhonchi. Breathing is nonlabored. Abdomen: Soft, nontender, nondistended. Extremities: No lower extremity edema. No calf tenderness. Psych: Alert and oriented. Procedures 07/10/17 Transesophageal echocardiogram, DC cardioversion Urinary Catheter: No Vascular Central Line Catheter: No A/P Problem List: (1) Atrial flutter with rapid ventricular response ICD Code: I48.92 - Unspecified atrial flutter Status: Acute (2) Elevated troponin ICD Code: R74.8 - Abnormal levels of other serum enzymes Status: Acute Assessment and Plan 1. Atrial flutter with RVR: S/P PAULINA and cardioversion. Appreciate cardiology recommendations. Patient denies chest pain, dyspnea, palpitations today. Continue metoprolol. 2. Elevated troponin: Possibly secondary to tachyarrhythmia, cardioversion. Appreciate cardiology recommendations. 3. DVT prophylaxis: Coumadin. Discharge Planning When cleared by cardiology. Stu Bartlett MD Jul 11, 2017 08:46
--- NOTE | 2017-07-11 08:55 | HHI.DCPOC ---
Discharge Care Plan Diagnosis: (1) Atrial flutter with rapid ventricular response (2) Elevated troponin Goals to Promote Your Health * To prevent worsening of your condition and complications * To maintain your health at the optimal level Directions to Meet Your Goals Take your medications as prescribed Follow your dietary instruction Follow activity as directed Keep your appointments as scheduled Take your immunizations and boosters as scheduled If your symptoms worsen call your PCP, if no PCP go to Urgent Care Center or Emergency Room Smoking is Dangerous to Your Health. Avoid second hand smoke Call the 24-hour hour crisis hotline for domestic abuse at Stu Bartlett MD Jul 11, 2017 08:55
[2017-07-11] MEDS ORDERED: METO25TA3 PO (08:56)
[2017-07-11] MEDS ORDERED: COUM4TAB PO (08:56)
[2017-07-11] MEDS ORDERED: REMOVE OLD PATCH T-DERMAL SCH (09:00)
[2017-07-11] MEDS: SODIUM CHLORIDE 0.9% FLUSH 10 ML FLUSH IV FLUSH SCH (09:00)
[2017-07-11] MEDS: NICOTINE 7 MG/24 HR PATCH T-DERMAL SCH (09:44)
[2017-07-11] MEDS: METOPROLOL TARTRATE 25 MG TAB PO SCH (09:44)
--- NOTE | 2017-07-11 10:29 | PD.CARD.PN ---
Subjective Subjective Remarks No CP or SOB, feels very well, stays in SR Objective Medications Laboratory Tests Test 07/10/17 12:22 07/10/17 16:05 07/10/17 22:39 Nasal Screen MRSA (PCR) MRSA NOT DETECTED Troponin I 1.17 2.05 Vital Signs / I&O Vital Signs Date Time Temp Pulse Resp B/P (MAP) Pulse Ox O2 Delivery O2 Flow Rate FiO2 07/11/17 08:00 75 07/11/17 06:00 74 07/11/17 04:00 98.4 64 16 107/67 (80) 07/11/17 04:00 71 07/11/17 02:00 75 07/11/17 00:00 70 07/11/17 00:00 98.3 70 16 91/64 (73) 95 07/10/17 22:00 70 07/10/17 20:00 98.2 75 38 95 07/10/17 20:00 75 07/10/17 18:00 78 07/10/17 16:00 65 07/10/17 14:38 58 07/10/17 12:30 152 07/10/17 11:30 150 16 93/56 (68) 97 Room Air 07/10/17 11:30 07/10/17 11:15 150 16 95/73 (80) 97 Room Air 07/10/17 10:43 153 16 101/63 (76) 97 Room Air 07/10/17 10:39 156 98/57 I/O 07/10/17 07/10/17 07/10/17 07/11/17 07/11/17 07/11/17 07:00 15:00 23:00 07:00 15:00 23:00 Intake Total 2045.00 ml 1013 ml Output Total 700 ml Balance 2045.00 ml 313 ml Intake Oral 60 ml IV Total 2045.00 ml 953 ml Output Urine Total 700 ml Physical Exam GENERAL: In NAD SKIN: Warm and dry. HEAD: Normocephalic. EYES: No scleral icterus. No injection or drainage. NECK: Supple, trachea midline. No JVD or lymphadenopathy. CARDIOVASCULAR: Regular rate and rhythm without murmurs, gallops, or rubs. RESPIRATORY: Breath sounds equal bilaterally. No accessory muscle use. GASTROINTESTINAL: Abdomen soft, non-tender, nondistended. MUSCULOSKELETAL: No cyanosis, or edema. Laboratory Laboratory Tests Test 07/10/17 12:22 07/10/17 16:05 07/10/17 22:39 Nasal Screen MRSA (PCR) MRSA NOT DETECTED Troponin I 1.17 NG/ML 2.05 NG/ML Assessment and Plan Problem List: (1) Atrial flutter with rapid ventricular response ICD Codes: I48.92 - Unspecified atrial flutter Assessment and Plan Stays in SR after cardioversion. Echo with preserved LV function. Continue metoprolol. Recommend anticoagulation with warfarin; f/u INR with Dr. Bob weekly until stable. Switch to aspirin in 3 months (CHADS-VASc score 0). DC home. F/u w Dr. Bob. Allen Siegel MD Jul 11, 2017 10:29
--- NOTE | 2017-07-11 10:40 | MR ---
cc: KAMRAN BILL DATE 07/11/2017 PROCEDURE PERFORMED Cardioversion INDICATION Atrial flutter with rapid ventricular response. PROCEDURE PERFORMED DC cardioversion SEDATION Provided by anesthesia. PROCEDURE After the patient was sedated by anesthesia, 50 joules biphasic shocks was delivered and converted the patient to sinus rhythm. The patient remained stable in sinus rhythm. DIAGNOSIS Successful cardioversion of atrial flutter. Mr. Bond will be monitored on telemetry. We will initiate anticoagulation with Warfarin and therapy with low-dose Metoprolol. His PT and INR will be followed by but his primary physician Dr. Bob. He will follow up with his PCP after discharge. MD ASHLYN Browning/ED /6:00 PM /10:35 AM
--- NOTE | 2017-07-11 14:37 | EKG ---
Date Performed: 07/10/2017 Time Performed: 09:19:47 PTAGE: 46 years EKG: ATRIAL FLUTTER/TACHYCARDIA WITH RAPID VENTRICULAR RESPONSE POSSIBLE RIGHT VENTRICULAR CONDU CTION DELAY NONSPECIFIC ST & T-WAVE ABNORMALITY ABNORMAL ECG Compared to PREVIOUS TRACING the patient is no longer in Sinus rhythm and the rhythm is most consistent with 2:1 atrial flutter. The nonspecific ST segment changes are ne w. Clinical correlation will be important. PREVIOUS TRACIN04/23/2008 09.58 DOCTOR: April Miller Interpretating Date/Time 07/11/2017 14:37:13
--- NOTE | 2017-07-11 14:53 | EKG ---
Date Performed: 07/10/2017 Time Performed: 11:29:42 PTAGE: 46 years EKG: ATRIAL FLUTTER/TACHYCARDIA WITH RAPID VENTRICULAR RESPONSE POSSIBLE RIGHT VENTRICULAR CONDU CTION DELAY NONSPECIFIC ST & T-WAVE ABNORMALITY ABNORMAL ECG PREVIOUS TRACING : 07/10/2017 09.19 Compared to prior tracing no significant change DOCTOR: April Miller Interpretating Date/Time 07/11/2017 14:50:46
[2017-07-11] MEDS ORDERED: WARFARIN SOD 4 MG TAB PO SCH (16:00)
--- NOTE | 2017-07-12 11:17 | CF ---
cc: KAMRAN BILL PROCEDURE PERFORMED Transesophageal echocardiogram INDICATIONS Atrial flutter, for sedation evaluation for left atrial thrombus prior to cardioversion. PROCEDURE After the patient was sedated by anesthesia, a transesophageal probe was placed without difficulty. Tomographic images were obtained. Left atrial appendage was visualized and there was no evidence of left atrial thrombus. Left ventricular function was preserved. His estimated ejection fraction is 55% with no significant wall motion abnormalities. The aortic root was dilated. There was evidence of moderate aortic insufficiency. There was no evidence of aortic stenosis. The mitral valve was structurally normal. There was no evidence of mitral stenosis. There was evidence of trace mitral regurgitation. There was evidence of a tricuspid regurgitation and also had evidence of trace pulmonary insufficiency. Bubble study was performed and there was no evidence of right to left shunt. Descending thoracic aorta and ascending thoracic aorta did not appear to be significantly dilated. DIAGNOSIS 1. No evidence of left atrial thrombus. 2. Preserved left ventricular systolic function. 3. Aortic root dilatation. 4. Moderate aortic insufficiency. 5. Trace mitral regurgitation. 6. Trace tricuspid regurgitation. MD ASHLYN Browning/ED /5:51 PM /11:03 AM
== END 2017-07-11 09:57 | disposition home or self-care (01) | DRG 310 ==
LOC: PHED 09:12 → PHEDA 10:30 → HIME 12:02
PROVIDERS: ADMIT Family Medicine; ATTEND Family Medicine
PROC: 5A2204Z Restoration of Cardiac Rhythm, Single (ICD-10-PCS; principal; 2017-07-10)
PROC: B24BZZ4 Ultrasonography of Heart with Aorta, Transesophageal (ICD-10-PCS; 2017-07-10)
DX: I48.92 Unspecified atrial flutter (principal); F17.210 Nicotine dependence, cigarettes, uncomplicated; K21.9 Gastro-esophageal reflux disease without esophagitis; Z87.11 Personal history of peptic ulcer disease; R74.8 Abnormal levels of other serum enzymes
CPT/HCPCS: 71010; 80053; 82550; 84443; 84484; 85025; 85610; 85730; 87641; 92960; 93005; 93306; 93312; 93320; 93325; 96361; 96374; J1160; J7030

== ENCOUNTER 2017-09-30 14:40 | Emergency (ER) | payer BC ==
[~2017-09-30] VITALS: Ht 177.8 cm; Wt 84.0 kg
[~2017-09-30 14:40] MED LIST changes: +COUM4TAB PO; -DOXY100C PO; +METO25TA3 PO; -MOTR200T4 PO; -NEXI20CA PO; +PRIL20TA2
[2017-09-30 14:46] VITALS: BP 126/68; PULSE 76; RESP 16; TEMP 98.3; O2SAT 97
[2017-09-30] MEDS ORDERED: CLIN300C5 PO (15:08)
--- NOTE | 2017-09-30 15:22 | PD ---
HPI Chief Complaint: ENT Complaint Time Seen by Provider: 15:14 Travel History International Travel<30 days: No Contact w/Intl Traveler<30days: No Traveled to known affect area: No History of Present Illness HPI 46-year-old male presents to the ED for evaluation of 3 day history of white spots in the back of his throat and now on his tongue. He endorses slight itch to that area but denies sore throat, headaches, sinus congestion, rhinorrhea, ear pain, cough, fevers, nausea or vomiting. He states that he just finished a course of clindamycin for diverticulitis. PFSH Past Medical History Hx Anticoagulant Therapy: Yes (COUMADIN) Arthritis: Yes Asthma: No Autoimmune Disease: No Cancer: No Cardiovascular Problems: No COPD: No Diabetes: No Diminished Hearing: No Endocrine: No Gastrointestinal Disorders: Yes (DIVERTICULITIS AND PERFORATED ULCER) GERD: Yes Genitourinary: No Hiatal Hernia: Yes Immune Disorder: No Musculoskeletal: Yes (RIGHT KNEE FX AGE 35) Neurologic: Yes Psychiatric: No Reproductive: No Respiratory: No Migraines: Yes Sleep Apnea: No Thyroid Disease: No Ulcer: Yes Past Surgical History Abdominal Surgery: Yes Appendectomy: Yes (AGE 14) Cardiac Surgery: No Ear Surgery: No Endocrine Surgery: No Eye Surgery: No Genitourinary Surgery: No Gynecologic Surgery: No Oral Surgery: No Thoracic Surgery: No Other Surgery: Yes (TENDON,ARTERY REPAIR RIGHT FOREARM 1992) Social History Alcohol Use: No Tobacco Use: Yes (/2 PPD) Substance Use: No Allergies-Medications (Allergen,Severity, Reaction): Coded Allergies: No Known Allergies (Verified , 02/03/17) Reported Meds & Prescriptions Reported Meds & Active Scripts Active Magic Mouthwash Adult Liq (Multi-Ingredient Mouthwash/Gargle) 120 Ml Susp 5 Ml SWISH-SWAL ACHS 14 Days Each 5mL contains: Nystatin 200,000units, Diphenhydramine 4.25mg, Viscous Lidocaine 10mg, [place]ura syrup 0.8 mL Clotrimazole Jose (Clotrimazole) 10 Mg Troc 10 Mg PO 5 TIMES A DAY 14 Days Coumadin (Warfarin) 4 Mg Tab 4 Mg PO DAILY@16 Metoprolol Tartrate 25 Mg Tab 25 Mg PO Q12HR Reported Clindamycin (Clindamycin HCl) 300 Mg Cap 300 Mg PO Q8HR Review of Systems Except as stated in HPI: all other systems reviewed are Neg Physical Exam Narrative GENERAL: Well-nourished, well-developed white male in no acute distress. SKIN: Warm and dry. HEAD: Normocephalic. Atraumatic. EYES: No scleral icterus. No injection or drainage. PERRLA. EOMI. ENT: Pearly allan tympanic membranes bilaterally. Nasal mucosa is moist. Oropharynx without erythema, edema or exudate. Several patches of thick white plaques which are suspicious for oral candidiasis. NECK: Supple, trachea midline. No JVD or lymphadenopathy. CARDIOVASCULAR: Regular rate and rhythm without murmurs, gallops, or rubs. RESPIRATORY: Breath sounds clear and equal bilaterally. No accessory muscle use. GASTROINTESTINAL: Abdomen soft, non-tender, nondistended. + Bowel sounds MUSCULOSKELETAL: No cyanosis, or edema. BACK: Nontender without obvious deformity. No CVA tenderness. Data Data Last Documented VS Vital Signs Date Time Temp Pulse Resp B/P (MAP) Pulse Ox O2 Delivery O2 Flow Rate FiO2 09/30/17 14:46 98.3 76 16 126/68 (87) 97 Orders Orders Group A Rapid Strep Screen (09/30/17 14:49) Strep Culture (Group A) (09/30/17 14:51) Ed Discharge Order (09/30/17 15:24) MDM Medical Decision Making Medical Screen Exam Complete: Yes Emergency Medical Condition: Yes Differential Diagnosis Oral candidiasis versus viral syndrome versus pharyngitis versus strep pharyngitis versus other Narrative Course 46-year-old male presents to the ED for evaluation of 3 day history of patchy white plaques in the oropharynx. He does finished a course of clindamycin for diverticulitis. Otherwise asymptomatic. Physical exam consistent with oropharyngeal candidiasis. Patient is prescribed clotrimazole troches 5 times a day 14 days. I also provided them with a Magic mouthwash prescription. He is instructed to use the medication as prescribed, follow up with his primary care provider. He indicated understanding of the instructions and is agreeable to the care plan. He is stable and discharged home. Diagnosis Primary Impression: Oral pharyngeal candidiasis Referrals: Primary Care Physician Patient Instructions: General Instructions, Oral Candidiasis (ED) Additional Instructions: Rest, hydrate. Use the medication as prescribed. Follow-up with primary care provider if symptoms do not improve. Plan your toothbrush away at the end of this illness. Return to the ED for any urgent or emergent medical condition. Med/Other Pt SpecificInfo: Prescription(s) given Scripts Wcsinwfa-Ugvphpmkiznqytu-Inoqwdczh Liq (Magic Mouthwash Adult Liq) 120 Ml Susp 5 ML SWISH-SWAL ACHS for Mouth sores for 14 Days, #120 ML 0 Refills Each 5mL contains: Nystatin 200,000units, Diphenhydramine 4.25mg, Viscous Lidocaine 10mg, Ventura syrup 0.8 mL Prov: Fly Berger MD 09/30/17 Clotrimazole Jose (Clotrimazole Jose) 10 Mg Troc 10 MG PO 5 TIMES A DAY for Fungal Infection for 14 Days, JOSE 0 Refills Prov: Fly Berger MD 09/30/17 Disposition: 01 DISCHARGE HOME Condition: Stable Zonia Stein Sep 30, 2017 15:22
[2017-09-30] MEDS ORDERED: MAGICADU2 SWISH-SWAL (15:23)
[2017-09-30] MEDS ORDERED: CLOT10TR PO (15:23)
== END 2017-09-30 15:53 | disposition home or self-care (01) ==
LOC: PHEFT 14:40
DX: B37.0 Candidal stomatitis (principal); K21.9 Gastro-esophageal reflux disease without esophagitis; F17.210 Nicotine dependence, cigarettes, uncomplicated; Z79.01 Long term (current) use of anticoagulants; Z79.899 Other long term (current) drug therapy
CPT/HCPCS: 87081; 87880; 99284

== ENCOUNTER 2018-01-25 12:38 | Emergency (ER) | payer BC ==
[~2018-01-25] VITALS: Ht 177.8 cm; Wt 83.4 kg
[~2018-01-25 12:38] MED LIST changes: +CLIN300C5 PO; +CLOT10TR PO; +MAGICADU2 SWISH-SWAL; -PRIL20TA2
[2018-01-25 12:40] VITALS: BP 124/60; PULSE 91; RESP 16; TEMP 98.7; O2SAT 97
[2018-01-25] MEDS ORDERED: OXYC1CAP PO (13:09)
[2018-01-25] MEDS ORDERED: TAMS0.4C4 PO (13:09)
[2018-01-25] MEDS ORDERED: NEXI40CA PO (13:09)
[2018-01-25] MEDS ORDERED: AMIO400T PO (13:09)
[2018-01-25] MEDS ORDERED: ASPI-516 CHEW (13:09)
[2018-01-25] MEDS ORDERED: METH500T3 PO (13:09)
[2018-01-25] MEDS ORDERED: METO25TA3 PO (13:09)
[2018-01-25] MEDS ORDERED: ALPR0.5T3 PO (13:09)
[2018-01-25] MEDS ORDERED: ATOR40TA16 PO (13:09)
[2018-01-25] MEDS ORDERED: [UNRECOGNIZED DRUG - CODE] PO (13:09)
[2018-01-25] MEDS ORDERED: CEPH-460 PO (13:31)
--- NOTE | 2018-01-25 13:38 | PD ---
HPI Chief Complaint: Skin Problem Time Seen by Provider: 13:10 Travel History International Travel<30 days: No Contact w/Intl Traveler<30days: No Traveled to known affect area: No History of Present Illness HPI This is a 47-year-old male who status post aortic aneurysm repair, presents today with complaint of left arm redness and discomfort. Patient had phlebitis of his left upper extremity. They remove the IV and wrapped it tight before he was discharged home yesterday. Today he presents with continued redness and warmth. There is no reported fevers, chills. There are no other complaints at time of examination. PFSH Past Medical History Hx Anticoagulant Therapy: Yes (ASA) Arthritis: Yes Asthma: No Autoimmune Disease: No Cancer: No Cardiovascular Problems: Yes (A FIB, aortic aneurysm ) COPD: No Diabetes: No Diminished Hearing: No Endocrine: No Gastrointestinal Disorders: Yes (DIVERTICULITIS AND PERFORATED ULCER) GERD: Yes Genitourinary: No Hiatal Hernia: Yes Immune Disorder: No Implanted Vascular Access Dvce: No Musculoskeletal: Yes (RIGHT KNEE FX AGE 35) Neurologic: Yes Psychiatric: No Reproductive: No Respiratory: No Migraines: Yes Sleep Apnea: No Thyroid Disease: No Ulcer: Yes Tetanus Vaccination: < 5 Years Past Surgical History Abdominal Surgery: Yes Appendectomy: Yes (AGE 14) Cardiac Surgery: Yes (AORTIC ANNEURYSM AND ARCH RESUSPENDED ON 01/15/18) Ear Surgery: No Endocrine Surgery: No Eye Surgery: No Genitourinary Surgery: No Gynecologic Surgery: No Neurologic Surgery: No Oral Surgery: No Thoracic Surgery: No Other Surgery: Yes (TENDON,ARTERY REPAIR RIGHT FOREARM 1992) Social History Alcohol Use: No Tobacco Use: Yes (09/17 PPD) Substance Use: No Allergies-Medications (Allergen,Severity, Reaction): Coded Allergies: No Known Allergies (Verified Adverse Reaction, Unknown, 01/25/18) Reported Meds & Prescriptions Reported Meds & Active Scripts Active Keflex (Cephalexin) 500 Mg Cap 500 Mg PO Q6H 10 Days Reported Oxycodone (Oxycodone HCl) 5 Mg Cap 5 Mg PO Q4H PRN Tamsulosin (Tamsulosin HCl) 0.4 Mg Cap 0.8 Mg PO HS Nexium (Esomeprazole DR) 40 Mg Capdr 40 Mg PO BID Metoprolol Tartrate 25 Mg Tab 25 Mg PO BID Methocarbamol 500 Mg Tab 1,000 Mg PO Q8HR Dss (Docusate Sodium) 250 Mg Cap 100 Mg PO BID Atorvastatin (Atorvastatin Calcium) 40 Mg Tab 40 Mg PO HS Aspirin 81 Mg Chew 81 Mg CHEW DAILY Amiodarone (Amiodarone HCl) 400 Mg Tab 400 Mg PO BID Alprazolam 0.5 Mg Tab 0.5 Mg PO HS Review of Systems Except as stated in HPI: all other systems reviewed are Neg General / Constitutional: No: Fever, Chills HENT: No: Headaches, Neck Pain Respiratory: No: Cough, Shortness of Breath Musculoskeletal: Positive: Pain (Discomfort of the left upper extremity at the IV site.), Other (Warmth and slight erythema of the upper extent) Skin: Positive Other (Phlebitis of the left upper extremity with warmth.) Physical Exam Narrative GENERAL: Well-nourished, well-developed patient, in no acute respiratory distress. SKIN: On examination patient's left upper extremity. There is a palpable superficial vein that appears to be mildly indurated/inflamed. There is mild redness noted in the area. There is no fluctuance. There is no true cellulitic look. HEAD: Normocephalic/atraumatic. EYES: No scleral icterus. No injection or drainage. NECK: Supple, trachea midline. No JVD or lymphadenopathy. NEUROLOGICAL: Awake and alert. Cranial nerves II through XII intact. Motor grossly within normal limits. Five out of 5 muscle strength in all muscle groups. Normal speech. Data Data Last Documented VS Vital Signs Date Time Temp Pulse Resp B/P (MAP) Pulse Ox O2 Delivery O2 Flow Rate FiO2 01/25/18 12:53 16 01/25/18 12:40 98.7 91 124/60 (81) 97 MDM Medical Decision Making Medical Screen Exam Complete: Yes Emergency Medical Condition: Yes Differential Diagnosis Superficial phlebitis versus cellulitis versus deep venous thrombosis Narrative Course 47-year-old male status post aortic repair in [place]. Patient presents 1 day after being discharged. When he was discharged he was noted to have phlebitis of the left AC superficial vein. The patient has some mild warmth and redness to the area. There is no fluctuance. The patient is afebrile. There is no lymphangitis noted. This appears to be consistent with superficial phlebitis. Given his recent surgery and aortic sleeve, we will start him on Keflex 500 mg 4 times daily 10 days. Case was discussed with Dr. Marcie Mcdonald , on-call cardiothoracic surgeon who agrees with the plan. He states he will see Dr. Claude Xie, patient's cardiothoracic surgeon tomorrow and will make mention to him that we placed him on the antibiotics. Patient will be instructed to use warm compresses 2-3 times daily. He is instructed to return to be DOS any increased redness, fevers chills, or any other reason. Diagnosis Primary Impression: Superficial phlebitis of the left upper extremity. Additional Impression: Status post aortic arch aneurysm repair. Additional Instructions: Warm compresses 2-3 times daily until resolution. Return if fevers, chills, increased redness, or any other reason that concerns you. Follow-up as scheduled. Med/Other Pt SpecificInfo: Prescription(s) given Scripts Cephalexin (Keflex) 500 Mg Cap 500 MG PO Q6H for Infection for 10 Days, #40 CAP 0 Refills Prov: Chris Rey MD 01/25/18 Disposition: 01 DISCHARGE HOME Condition: Stable Chris Rey MD January 25, 2018 13:38
[2018-01-25 14:07] VITALS: BP 120/65
[2018-01-25] MEDS ORDERED: TYLE325T PO (17:08)
== END 2018-01-25 14:08 | disposition home or self-care (01) ==
LOC: PHED 12:38
DX: I80.8 Phlebitis and thrombophlebitis of other sites (principal); Z98.890 Other specified postprocedural states; I48.91 Unspecified atrial fibrillation; F17.210 Nicotine dependence, cigarettes, uncomplicated; Z79.899 Other long term (current) drug therapy
CPT/HCPCS: 99283

== ENCOUNTER 2018-01-25 16:31 | Emergency (ER) | payer SELFPAY ==
[~2018-01-25] VITALS: Ht 177.8 cm; Wt 84.0 kg
[~2018-01-25 16:31] MED LIST changes: +ALPR0.5T3 PO; +AMIO400T PO; +ASPI-516 CHEW; +ATOR40TA16 PO; +CEPH-460 PO; +METH500T3 PO; +NEXI40CA PO; +OXYC1CAP PO; +TAMS0.4C4 PO; +[UNRECOGNIZED DRUG - CODE] PO
[2018-01-25 16:38] VITALS: BP 133/65; PULSE 137; RESP 18; O2SAT 93
[2018-01-25] MEDS ORDERED: SODIUM CHLORIDE 0.9% FLUSH 10 ML FLUSH IVF PRN (17:00)
--- NOTE | 2018-01-25 17:00 | PD ---
HPI Chief Complaint: Cardiac Complaint Time Seen by Provider: 16:54 Travel History International Travel<30 days: No Contact w/Intl Traveler<30days: No Traveled to known affect area: No History of Present Illness HPI 47-year-old male who underwent thoracic aortic aneurysm repair as well as aortic valve repair on 01/15/18 at [facility] by cardiothoracic surgeon Dr. Kenny Xie, discharged from the hospital yesterday, seen earlier today and diagnosed with superficial thrombophlebitis at the IV site in his left arm, discharged home with Keflex, brought in by ambulance for evaluation of A. fib with RVR. Patient reports having an episode of A. fib with RVR during his hospitalization at [facility] which resolved with an amiodarone drip. He was discharged home with amiodarone and metoprolol for rate control. States that he started feeling palpitations about 30 minutes prior to arrival. He was given 20 mg of IV Cardizem by EMS without any improvement in his rate. He was then given a 150 mg IV amiodarone bolus by them. His only complaint is of palpitations. He denies dyspnea. He states he is having some chest discomfort , but states it is the same discomfort that he has been experiencing since his surgery. No fevers. No paresthesias. PFSH Past Medical History Hx Anticoagulant Therapy: No Arthritis: Yes Asthma: No Autoimmune Disease: No Cancer: No Cardiovascular Problems: Yes (AORTIC ANEURYSM REPAIR , AFIB ) COPD: No Diabetes: No Diminished Hearing: No Endocrine: No Gastrointestinal Disorders: Yes (DIVERTICULITIS AND PERFORATED ULCER) GERD: Yes Genitourinary: No Hiatal Hernia: Yes Immune Disorder: No Implanted Vascular Access Dvce: No Musculoskeletal: Yes (RIGHT KNEE FX AGE 35) Neurologic: Yes Psychiatric: No Reproductive: No Respiratory: No Migraines: Yes Sleep Apnea: No Thyroid Disease: No Ulcer: Yes Past Surgical History Abdominal Surgery: Yes Appendectomy: Yes (AGE 14) Cardiac Surgery: Yes (AORTIC ANNEURYSM AND ARCH RESUSPENDED ON 01/15/18) Ear Surgery: No Endocrine Surgery: No Eye Surgery: No Genitourinary Surgery: No Gynecologic Surgery: No Neurologic Surgery: No Oral Surgery: No Thoracic Surgery: No Other Surgery: Yes (TENDON,ARTERY REPAIR RIGHT FOREARM 1992) Social History Alcohol Use: No Tobacco Use: Yes (09/17 PPD) Substance Use: No Allergies-Medications (Allergen,Severity, Reaction): Coded Allergies: No Known Allergies (Verified Allergy, Unknown, 01/25/18) Reported Meds & Prescriptions Reported Meds & Active Scripts Active Keflex (Cephalexin) 500 Mg Cap 500 Mg PO Q6H 10 Days Reported Tylenol (Acetaminophen) 325 Mg Tab 650 Mg PO Q4H PRN Oxycodone (Oxycodone HCl) 5 Mg Cap 5 Mg PO Q4H PRN Tamsulosin (Tamsulosin HCl) 0.4 Mg Cap 0.8 Mg PO HS Nexium (Esomeprazole DR) 40 Mg Capdr 40 Mg PO BID Metoprolol Tartrate 25 Mg Tab 25 Mg PO BID Methocarbamol 500 Mg Tab 1,000 Mg PO Q8HR Dss (Docusate Sodium) 250 Mg Cap 100 Mg PO BID Atorvastatin (Atorvastatin Calcium) 40 Mg Tab 40 Mg PO HS Aspirin 81 Mg Chew 81 Mg CHEW DAILY Amiodarone (Amiodarone HCl) 400 Mg Tab 400 Mg PO BID Alprazolam 0.5 Mg Tab 0.5 Mg PO HS Review of Systems Except as stated in HPI: all other systems reviewed are Neg Physical Exam Narrative GENERAL: Well-developed, well-nourished, awake, alert, no apparent distress. SKIN: Focused skin assessment warm/dry. Left anterior arm with area of warmth and erythema, no crepitus, all compartments are supple, no red streaks, no fluctuance, mild induration. Median sternotomy incision healing well without warmth erythema. HEAD: Atraumatic. Normocephalic. EYES: Pupils equal and round. No scleral icterus. No injection or drainage. ENT: Mucous membranes pink and moist. NECK: Trachea midline. No JVD. CARDIOVASCULAR: Irregularly irregular, rate 130s. Distal pulses brisk and equal bilaterally. RESPIRATORY: No accessory muscle use. Clear to auscultation. Breath sounds equal bilaterally. GASTROINTESTINAL: Abdomen soft, non-tender, nondistended. MUSCULOSKELETAL: No obvious deformities. No clubbing. No cyanosis. No edema. NEUROLOGICAL: Awake and alert. No obvious cranial nerve deficits. Motor grossly within normal limits. Normal speech. PSYCHIATRIC: Appropriate mood and affect; insight and judgment normal. Data Data Last Documented VS Vital Signs Date Time Temp Pulse Resp B/P (MAP) Pulse Ox O2 Delivery O2 Flow Rate FiO2 01/25/18 18:00 114 18 126/80 (95) 96 01/25/18 16:40 Nasal Cannula 2.00 Orders Orders Ckmb (Isoenzyme) Profile (01/25/18 16:54) Complete Blood Count With Diff (01/25/18 16:54) Comprehensive Metabolic Panel (01/25/18 16:54) Magnesium (Mg) (01/25/18 16:54) Prothrombin Time / Inr (Pt) (01/25/18 16:54) Act Partial Throm Time (Ptt) (01/25/18 16:54) Troponin I (01/25/18 16:54) Chest, Single Ap (01/25/18 16:54) Ecg Monitoring (01/25/18 16:54) Iv Access Insert/Monitor (01/25/18 16:54) Oximetry (01/25/18 16:54) Sodium Chloride 0.9% Flush (Ns Flush) (01/25/18 17:00) ^ Medication Alert (01/25/18 16:56) ^ Discontinue (01/25/18 16:56) Dextrose 5% In Wate... W/Amiodarone Inj (01/25/18 17:06) Vital Signs (Adult) SALLIE.Q4H (01/25/18 16:56) Sodium Chlor 0.9% (... W/Amiodarone Inj (01/25/18 17:06) Blood Culture (01/25/18 17:49) Radiology Film Requests (01/25/18 ) Labs Laboratory Tests Test 01/25/18 17:42 01/25/18 17:50 Prothrombin Time 11.7 SEC Prothromb Time International Ratio 1.2 RATIO Activated Partial Thromboplast Time 24.3 SEC Blood Urea Nitrogen 18 MG/DL Creatinine 0.97 MG/DL Random Glucose 84 MG/DL Total Protein 7.4 GM/DL Albumin 2.9 GM/DL Calcium Level 8.6 MG/DL Magnesium Level 2.1 MG/DL Alkaline Phosphatase 90 U/L Aspartate Amino Transf (AST/SGOT) 37 U/L Alanine Aminotransferase (ALT/SGPT) 65 U/L Total Bilirubin 0.7 MG/DL Sodium Level 133 MEQ/L Potassium Level 3.8 MEQ/L Chloride Level 100 MEQ/L Carbon Dioxide Level 19.3 MEQ/L Anion Gap 14 MEQ/L Estimat Glomerular Filtration Rate 82 ML/MIN Total Creatine Kinase 80 U/L Troponin I 0.46 NG/ML White Blood Count 25.7 TH/MM3 Red Blood Count 3.21 MIL/MM3 Hemoglobin 10.4 GM/DL Hematocrit 31.0 % Mean Corpuscular Volume 96.5 FL Mean Corpuscular Hemoglobin 32.6 PG Mean Corpuscular Hemoglobin Concent 33.7 % Red Cell Distribution Width 13.5 % Platelet Count 350 TH/MM3 Mean Platelet Volume 8.1 FL Neutrophils (%) (Auto) 87.6 % Lymphocytes (%) (Auto) 5.3 % Monocytes (%) (Auto) 6.1 % Eosinophils (%) (Auto) 0.7 % Basophils (%) (Auto) 0.3 % Neutrophils # (Auto) 22.5 TH/MM3 Lymphocytes # (Auto) 1.4 TH/MM3 Monocytes # (Auto) 1.6 TH/MM3 Eosinophils # (Auto) 0.2 TH/MM3 Basophils # (Auto) 0.1 TH/MM3 CBC Comment DIFF FINAL Differential Comment MDM Medical Decision Making Medical Screen Exam Complete: Yes Emergency Medical Condition: Yes Interpretation(s) EKG: A. fib with RVR, rate 132, normal axis, LVH, inferior and lateral ST depressions and T-wave inversions. Differential Diagnosis A. fib with RVR, metabolic Normality, ACS Narrative Course Shortly after the patient arrived to the emergency department I discussed the case with on-call cardiothoracic surgeon Dr. Elva Castaneda. He will contact the cardiothoracic surgeon at [facility] Dr. Kenny Xie, but believes that the patient can be admitted here for rate control. He will let me know if Dr. Xie would like the patient be transferred to . Patient was started on amiodarone drip. His blood pressure has been around 130 systolic. The patient's family contacted the on-call cardiothoracic surgeon at [facility] who stated he would like the patient to be transferred to their service. 5:50 PM: I discussed the patient with the transfer center and the patient has been accepted by cardiothoracic surgeon Dr. Mathew to the ICU. The patient and the patient's family are happy with this plan. CBC: WBC 25.7, hemoglobin 10.4, hematocrit 31, platelets 350, neutrophils 87.6. CMP is essentially unremarkable. Troponin is 0.46. Chest x-ray: Median sternotomy wires, mild cardiomegaly, minimal blunting of the left posterior sulcus. Lab results were relayed to cardiothoracic surgeon Dr. Mathew. Plan at this time is to keep the patient on amiodarone drip. Slight elevation in troponin is likely secondary to A. fib with RVR as well as recent cardiac surgery. Leukocytosis is also likely secondary to recent cardiac surgery. The patient is afebrile. Critical Care Narrative Aggregate critical care time was 45 minutes. Time to perform other separately billable procedures was not included in the critical care time. My time did not include minutes spent treating any other patients simultaneously or on activities that did not directly contribute to the patient's treatment. The services I provided to this patient were to treat and/or prevent clinically significant deterioration that could result in: , permanent disability, worsening clinical condition, I provided critical care services requiring my management, as noted below: Chart data review, documentation time, medication orders and management, vital sign assessments/reviewing monitor data, ordering and reviewing lab tests, ordering and interpreting/reviewing x-rays and diagnostic studies, care of the patient and discussion of the patient with the admitting physicians. Diagnosis Primary Impression: Atrial fibrillation with RVR Disposition: 70 TRANSFER TO OTHER FACILITY Condition: Rakesh Garcia MD January 25, 2018 17:00
[2018-01-25] MEDS ORDERED: AMIODARONE INJ 450 MG in DEXTROSE 5% IN WATE(EXCEL) INJ 241 ML IV PRN ×2 (17:06)
[2018-01-25] MEDS ORDERED: AMIODARONE INJ 450 MG in SODIUM CHLOR 0.9% (EXCEL) INJ 250 ML IV PRN (17:06)
[2018-01-25] MEDS ORDERED: TYLE325T PO (17:08)
--- NOTE | 2018-01-25 17:09 | RADRPT ---
EXAM DATE/TIME: 01/25/2018 16:59 [facility] COMPARISON: CHEST SINGLE AP, July 10, 2017, 9:30. INDICATIONS : Palpitations. MEDICAL HISTORY : Gastroesophageal reflux disease. Diverticulitis. Perforated ulcer. Right knee fracture. Smoker. SURGICAL HISTORY : Appendectomy. Right forearm tendon repair. Open heart. ENCOUNTER: Initial ACUITY: 1 day PAIN SCORE: 5/10 LOCATION: Bilateral chest FINDINGS: A single view of the chest demonstrates the lungs to be symmetrically aerated without evidence of mas s, infiltrate or effusion. Minimal blunting left posterior sulcus nonspecific. Sternal wires of pre vious bypass are noted. Mild cardiomegaly Osseous structures are intact. CONCLUSION: Previous bypass, mild cardiomegaly minimal blunting left posterior sulcus. Hansel Henderson MD FACR on January 25, 2018 at 17:05 Board Certified Radiologist. This report was verified electronically.
[2018-01-25 18:00] VITALS: BP 126/80; PULSE 114; RESP 18; O2SAT 96
[2018-01-25 18:14] LABS: INTERNATIONAL NORMALIZED RATIO 1.2 RATIO; PROTHROMBIN TIME - PATIENT 11.7 SEC (9.8-11.6)
[2018-01-25 18:17] LABS: ALBUMIN 2.9 GM/DL (3.4-5.0); ALT (GPT) 65 U/L (12-78); AST (GOT) 37 U/L (15-37); BICARBONATE 19.3 MEQ/L (21.0-32.0); BLOOD UREA NITROGEN 18 MG/DL (7-18); CALCIUM 8.6 MG/DL (8.5-10.1); CHLORIDE 100 MEQ/L (98-107); CREATININE 0.97 MG/DL (0.60-1.30); GLOMERULAR FILTRATION RATE 82 ML/MIN (>89); GLUCOSE,RANDOM 84 MG/DL (74-106); MAGNESIUM 2.1 MG/DL (1.5-2.5); SODIUM (NA) 133 MEQ/L (136-145)
[2018-01-25 18:19] LABS: ALKALINE PHOSPHATASE 90 U/L (45-117); TOTAL BILIRUBIN ADULT 0.7 MG/DL (0.2-1.0); TOTAL PROTEIN 7.4 GM/DL (6.4-8.2); TROPONIN I 0.46 NG/ML (0.02-0.05)
[2018-01-25 18:47] LABS: AUTOMATED NEUTROPHIL # 22.5 TH/MM3 (1.8-7.7); BASOPHIL # 0.1 TH/MM3 (0-0.2); BASOPHIL % 0.3 % (0.0-2.0); EOSINOPHIL # 0.2 TH/MM3 (0-0.4); EOSINOPHIL % 0.7 % (0.0-4.0); HEMOGLOBIN 10.4 GM/DL (13.0-17.0); LYMPH % 5.3 % (9.0-44.0); LYMPHOCYTE # 1.4 TH/MM3 (1.0-4.8); MEAN CELL VOLUME 96.5 FL (80.0-100.0); MEAN CORPUSCULAR HEMOGLOBIN 32.6 PG (27.0-34.0); MEAN CORPUSCULAR HGB CONC 33.7 % (32.0-36.0); MEAN PLATELET VOLUME 8.1 FL (7.0-11.0); MONO % 6.1 % (0.0-8.0); MONOCYTE # 1.6 TH/MM3 (0-0.9); NEUT % 87.6 % (16.0-70.0); PLATELET COUNT 350 TH/MM3 (150-450); RED BLOOD COUNT 3.21 MIL/MM3 (4.50-5.90); RED CELL DISTRIBUTION WIDTH 13.5 % (11.6-17.2); WHITE BLOOD COUNT 25.7 TH/MM3 (4.0-11.0)
--- NOTE | 2018-01-26 17:35 | EKG ---
Date Performed: 01/25/2018 Time Performed: 16:41:26 PTAGE: 47 years EKG: ATRIAL FIBRILLATION WITH RAPID VENTRICULAR RESPONSE VOLTAGE CRITERIA FOR LVH POSSIBLE INFER IOR MYOCARDIAL INFARCTION ST DEVIATION AND MODERATE T-WAVE ABNORMALITY ABNORMAL ECG PREVIOUS TRACING : 07/10/2017 11.29 Compared to previous tracing, rate slower, a flutter no arsalan dodd present DOCTOR: Allen Siegel Interpretating Date/Time 01/26/2018 17:33:55
== END 2018-01-25 20:05 | disposition short-term general hospital (02) ==
LOC: NEPE 16:31
DX: I48.91 Unspecified atrial fibrillation (principal); K21.9 Gastro-esophageal reflux disease without esophagitis; F17.210 Nicotine dependence, cigarettes, uncomplicated
CPT/HCPCS: 71045; 80053; 82550; 83735; 84484; 85025; 85610; 85730; 87040; 93005; 96374; 99291; J0282; J7050